=== PATIENT | female | born 1965 | race Caucasian/White ===

== ENCOUNTER 2022-05-05 22:50 | Emergency (ER) | payer OTHER ==
[~2022-05-05] VITALS: Ht 165.1 cm; Wt 70.3 kg
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
[2022-05-05] MEDS ORDERED: ONDANSETRON 4 MG TAB.RAPDIS SL ONE (23:30)
[2022-05-05] MEDS ORDERED: MORPHINE SULFATE INJ 2 MG/ML DISP.SYRIN IM ONE (23:30)
[2022-05-05] MEDS ORDERED: MORPHINE SULFATE INJ 4 MG/ML DISP.SYRIN ONE (23:34)
[2022-05-05] MEDS ORDERED: ONDANSETRON 4 MG TAB.RAPDIS ONE (23:34)
--- NOTE | 2022-05-06 00:57 | NUR ---
ELASTIC BANDAGE APPLIED TO AFFECTED AREAS.
--- NOTE | 2022-05-06 00:57 | NUR ---
Patient discharged to home in stable condition. Written and verbal after care instructions given. Patient verbalizes understanding of instruction.
[2022-05-06 00:59] VITALS: BP 134/91
== END 2022-05-06 01:00 | disposition home or self-care (01) ==
LOC: ER 22:54
DX: S80.12XA Contusion of left lower leg, initial encounter (principal); S80.11XA Contusion of right lower leg, initial encounter; S63.302A Traumatic rupture of unspecified ligament of left wrist, initial encounter; V89.2XXA Person injured in unspecified motor-vehicle accident, traffic, initial encounter; Y93.89 Activity, other specified; Y92.89 Other specified places as the place of occurrence of the external cause; Y99.8 Other external cause status
CPT/HCPCS: 73090; 73590 ×2; 96372; 99284; J2270; Q0162